=== PATIENT | female | born 1990 | race Two or more races ===

== ENCOUNTER 2018-08-07 01:32 | Emergency (ER) | payer OTHER ==
[~2018-08-07] VITALS: Ht 162.6 cm; Wt 81.6 kg
[2018-08-07 03:22] LABS: Basophils # (auto) 0 uL; Basophils % (auto) 0.3 % (0.0-2.0); Eosinophils # (auto) 0.1 uL; Eosinophils % (auto) 0.6 % (0.0-7.0); Hematocrit 35.9 % (36.0-46.0); Hemoglobin 11.9 g/dL (12.2-16.2); Lymphocytes # (auto) 1.9 uL; Lymphocytes % (auto) 13.2 % (10.0-50.0); Mean Corpuscular Hemoglobin 31.2 pg (28.0-32.0); Mean Corpuscular Hgb Conc. 33.2 g/dL (32.0-36.0); Mean Corpuscular Volume 94.2 fL (80.0-100.0); Monocytes % (auto) 6.7 % (0.0-12.0); Neutrophils # (auto) 11.6 uL; Neutrophils % (auto) 79.2 % (37.0-80.0); Platelet Count (auto) 309 10^3/uL (140-450); Red Blood Cells 3.81 10^6/uL (4.0-5.20); White Blood Cell 14.6 10^3/uL (4.4-10.8)
[2018-08-07 03:40] LABS: Albumin 3.1 g/dL (3.4-5.0); BUN/Creatinine Ratio 10.3; Calcium 8.5 mg/dL (8.5-10.1); Potassium 3.7 mmol/L (3.5-5.1)
[2018-08-07 03:43] LABS: Bilirubin, Total 0.3 mg/dL (0.2-1.0)
[2018-08-07] MEDS ORDERED: SODIUM CHLORIDE 0.9% 1,000 ML IV ONE (03:45)
[2018-08-07] MEDS ORDERED: ONDANSETRON HCL 4 MG/2 ML VIAL IV ONE (03:45)
[2018-08-07 04:15] LABS: Urine Amorphous Crystal FEW /hpf (None Seen); Urine Bacteria FEW /hpf (None Seen); Urine Blood Negative /uL (Negative); Urine Mucus FEW (None Seen); Urine Specific Gravity 1.014 (1.001-1.035); Urine WBC 2 /hpf (0 - 5)
[2018-08-07 06:04] VITALS: BP 90/56
== END 2018-08-07 06:22 | disposition home or self-care (01) ==
LOC: ER 01:36
DX: O21.0 Mild hyperemesis gravidarum (principal); O26.892 Other specified pregnancy related conditions, second trimester; J45.909 Unspecified asthma, uncomplicated; Z3A.24 24 weeks gestation of pregnancy
CPT/HCPCS: 36415; 76705; 80053; 81001; 82150; 83690; 85025; 94761; 96360; 96361; 99284; J7030